=== PATIENT | female | born 1955 ===

== ENCOUNTER → 2017-12-05 | Day surgery (SDC) | payer OTHER ==
[~2017-12-05] VITALS: Ht 152.4 cm; Wt 63.5 kg
--- NOTE | 2017-12-06 07:49 | Operative Report ---
Operative/Inv Procedure Report Surgery Date: 12/05/17 Name of Procedure: cysto: mid urethral sling with mesh insertion: perineal body repair Pre-Operative Diagnosis: OBEY, posterior pelvic prolapse Post-Operative Diagnosis: same Estimated Blood Loss: 50ml to 100ml Surgeon/Professor Of Environmental Engineering: Jose Luis Haines MD Anesthesia: moderate sedation, block Drains: 16fr wright-dc in RR, and DC vaginal packing in RR Complications: none Operative/Procedure Note Note: The patient was taken to the operating room and placed on the OR table in supine position. Timeout was performed,with the patient awake, in order to confirm the patient's correct identity, planned procedure, anesthesia, antibiotics/ irrigation, and other pertinent josé miguel-operative information. After adequate anesthesia, and IV antibiotics, the patient was then placed in lithotomy stirrups, draped and prepped in the usual surgical fashion. A 14 [place] Wright catheter was inserted into the bladder draining clear urine until decompressed. 10 mL of sterile water was placed into the balloon. Lidocaine with epinephrine was used to hydro-dissect the anterior vaginal mucosa particularly at the midline. 10 blade knife was used to make an incision in its vertical fashion along the midline of the cystocele. The dissection using Metzenbaum scissors was performed in order to create bilateral anterior vaginal mucosal flaps, and expose the perivesical fascia. Spot cauterization was used in order to achieve good hemostasis. Using 0 Vicryl sutures the lateralized perivesical fascia was brought together at the midline using a Mayra plication technique. A-Cell was secured onto the cystoscoele repair flat, and sized appropriately. At this point, the josé miguel-riurethral fascia was reapproximated at the midline using 2-0 vicryl sutures in a mayra-plication technique. The obturator/internal aspect of the ischial bone was palpable from both sides of the urethral dissection. Small stab incisions on the lateral portion of the labia, approximately 2 cm below the insertion point of the gracilis was performed using 15 blade knife. The entire area was infiltrated with 2% lidocaine with epinephrine. The finder-needle was used in order to identify the inner surface of the initial spine to find the obturator space. Using the right-handed needle passer, the puncture wound on the left side of the patient was entered, guiding the passer, with index finger in the vaginal josé miguel-urethral space, through the inner surface of the obturator, and into the josé miguel-vesicle space extending out through the left side of the anterior vaginal dissection. The mesh was then attached to the needle passer, and the needle passer was then retracted along the same line as was entered, pulling the mesh in place along with it. The oposite side of the mesh was passed into the josé miguel-vesical space, and out through the right stab incision using mirror image technique. The mesh was flattened, and securely placed across the mid-urethral position. Copious amount of vancomycin irrigation solution was used to irrigate the vaginal incision as well as the lateral incisions. The Wright catheter was removed, followed by insertion of a 22 [place] cystoscope sheath with a 30 angle lens. Upon entering the bladder the bladder was noted to be free of tumor free of injury free of stone area both ureteral orifices were in their orthotopic position with clear reflux bilaterally. The cystoscope was then drained and the 14 [place] Wright catheter was then reinserted. The excess mesh material extruding from the lateral incisions was cut down below the skin, both lateral incisions were closed using Flanagan. The anterior vaginal incision was closed using 2-0 undyed Vicryl stitch in a alternating simple/locking stitch. With the mid-ureathral sling completed, and the cystocele repaired, the excess anterior vaginal mucosa edges were trimmed slightly, and the freshened edges were re-approximated/closed uring the 2-0 Vicryl locking stitch. Discharge Disposition: Same Day Admissions CC: Jose Luis Haines MD
== END ==
LOC: STS 02:38
DX: N39.3 Stress incontinence (female) (male) (principal); N81.89 Other female genital prolapse; N81.10 Cystocele, unspecified; I10 Essential (primary) hypertension; E11.9 Type 2 diabetes mellitus without complications; Z79.84 Long term (current) use of oral hypoglycemic drugs
CPT/HCPCS: 36415; 93005; 93010; C1781; J0690; J2250; J3370